=== PATIENT | female | born 1955 | race Caucasian/White ===

== ENCOUNTER → 2018-06-19 11:58 | Outpatient (REF) | payer MEDICAID, SELFPAY ==
[2018-06-19 12:50] LABS: Anion Gap 12.4 mmol/L (3-11); BUN 13 mg/dL (7-18); CO2 22.6 mmol/L (21.0-32.0); CREATININE 0.77 mg/dL (0.55-1.02); Calcium 8.8 mg/dL (8.5-10.1); Chloride 103 mmol/L (98-107); Glucose 115 mg/dL (70-100); NT-proBNP 69 pg/mL; Potassium 4.6 mmol/L (3.5-5.1); Sodium 138 mmol/L (136-145)
== END ==
LOC: LBN 11:58
PROVIDERS: PCP Family Medicine; Visit Provider Family Medicine
DX: I10 Essential (primary) hypertension (principal)
CPT/HCPCS: 80048; 83880

== ENCOUNTER → 2018-06-26 13:57 | Outpatient (CLI) | payer MEDICAID, SELFPAY ==
--- NOTE | 2018-06-26 13:44 | DI.REPORT_ITS ---
SYMPTOM/DIAGNOSIS: F/U RT PROX HUMERUS FX RIGHT SHOULDER: When compared with the previous images of 06/14/18 there has been no appreciable interval change in apposition or alignment of the comminuted fracture of the proximal radius. Early callus formation is identified at the fracture margins and there is nothing to suggest that healing is not progressing satisfactorily at the present time.
--- NOTE | 2018-06-26 13:44 | DI.REPORT_ITS ---
SYMPTOM/DIAGNOSIS: R/U ORIF RT ANKLE FX RIGHT ANKLE: Three projections are provided. The patient is status post plate and screw fixation of a lateral malleolar fracture and screw fixation of a medial malleolar fracture. There has been no apparent change in the position of the trimalleolar fracture. Orthopaedic hardware in place.
== END ==
PROVIDERS: PCP Family Medicine; Visit Provider Student in an Organized Health Care Education/Training Program
DX: S82.891F Other fracture of right lower leg, subsequent encounter for open fracture type IIIA, IIIB, or IIIC with routine healing (principal); S42.291D Other displaced fracture of upper end of right humerus, subsequent encounter for fracture with routine healing
CPT/HCPCS: 73030; 73610

== ENCOUNTER → 2018-07-17 11:16 | Outpatient (CLI) | payer MEDICAID, SELFPAY ==
--- NOTE | 2018-07-17 11:12 | DI.REPORT_ITS ---
SYMPTOMS/DIAGNOSIS: OPEN FX RT ANKLE RIGHT ANKLE: Three projections were provided. There has been no change in the apposition of the fractures of the medial and lateral malleolus or status of the orthopedic hardware.
--- NOTE | 2018-07-17 11:12 | DI.REPORT_ITS ---
SYMPTOMS/DIAGNOSIS: FX RT HUMERUS RIGHT SHOULDER: There has been no interval change in the apposition or alignment of the fracture of the proximal humerus. There is nothing to suggest that healing is not progressing satisfactorily at the present time.
== END ==
PROVIDERS: PCP Family Medicine; Visit Provider Physician Assistant
DX: S42.294D Other nondisplaced fracture of upper end of right humerus, subsequent encounter for fracture with routine healing (principal); S82.891E Other fracture of right lower leg, subsequent encounter for open fracture type I or II with routine healing
CPT/HCPCS: 73030; 73610

== ENCOUNTER 2018-08-14 14:25 | Outpatient (CLI) | payer MEDICAID, SELFPAY ==
--- NOTE | 2018-08-14 14:18 | DI.RAD_ITS ---
SYMPTOM/DIAGNOSIS: S/P ORIF RT ANKLE RIGHT ANKLE: When compared with the prior study of 07/17/18 there has been no interval change in apposition of the fracture of the medial and lateral malleoli or status of the orthopaedic hardware.
--- NOTE | 2018-08-14 14:18 | DI.RAD_ITS ---
SYMPTOM/DIAGNOSIS: PROXIMAL HUMERUS FX RIGHT SHOULDER: When compared with the prior examination of 07/17/18 there has been no apparent interval change in the appositional alignment of the fractures involving the proximal humerus.
== END 2018-08-14 14:45 ==
PROVIDERS: PCP Family Medicine; Visit Provider Student in an Organized Health Care Education/Training Program
DX: S82.51XD Displaced fracture of medial malleolus of right tibia, subsequent encounter for closed fracture with routine healing (principal); S42.294D Other nondisplaced fracture of upper end of right humerus, subsequent encounter for fracture with routine healing
CPT/HCPCS: 73030; 73600

== ENCOUNTER 2018-09-11 13:53 | Outpatient (CLI) | payer MEDICAID, SELFPAY ==
--- NOTE | 2018-09-11 13:16 | DI.RAD_ITS ---
SYMPTOMS/DIAGNOSIS: F/U RIGHT ANKLE OPEN REDUCTION AND INTERNAL FIXATION RIGHT ANKLE: Comparison is made with July,. There has been no change in the hardware in the distal tibia and fibula. There has been continued healing of the fractures. 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
== END 2018-09-11 14:13 ==
PROVIDERS: PCP Family Medicine; Visit Provider Student in an Organized Health Care Education/Training Program
DX: S82.51XD Displaced fracture of medial malleolus of right tibia, subsequent encounter for closed fracture with routine healing (principal); M81.8 Other osteoporosis without current pathological fracture
CPT/HCPCS: 73610

== ENCOUNTER 2019-01-23 16:22 | Outpatient (REF) | payer MEDICAID, SELFPAY ==
--- NOTE | 2019-01-23 10:30 | PAPFT_PTH ---
PATIENT: Elle Neal LOC: [facility] U#:[id number] AGE/SX: 63/F ROOM: RE01/23/[address]: Riya Shea V : 1955 BED: DIS: 01/23/2019 SPEC #: [id number] RECD: 01/24/19 13:11 STATUS: RACHID REAnahi #: [id number] TOO: 01/23/19 10:[address]: Riya Shea V DEPT: [facility] Cytology RECD BY: Poornima Garrett Tissues: 1 - CX/ENDOCX FOR PAP SMEARS Procedures: PAP THIN PREP/UVM Screening HPV DNA PROBE Comments: [id number]
== END 2019-01-23 16:42 ==
LOC: NCHCN 16:22
PROVIDERS: PCP Family Medicine; Visit Provider Family Medicine
DX: Z12.4 Encounter for screening for malignant neoplasm of cervix (principal); Z11.51 Encounter for screening for human papillomavirus (HPV); Z01.419 Encounter for gynecological examination (general) (routine) without abnormal findings
CPT/HCPCS: 88142; 87624

== ENCOUNTER 2019-09-15 17:43 | Outpatient (REF) | payer MEDICAID, SELFPAY | END 2019-09-15 18:03 | LOC: NCHCN 17:43 | PROVIDERS: PCP Family Medicine; Visit Provider Nurse Practitioner Family | DX: J02.9 Acute pharyngitis, unspecified (principal); K21.9 Gastro-esophageal reflux disease without esophagitis | CPT/HCPCS: 87070 ==

== ENCOUNTER 2020-04-22 01:06 | Outpatient (CLI) | payer MEDICAID, SELFPAY ==
--- NOTE | 2020-04-22 15:12 | DI.MAMMO_ITS ---
EXAM: MG MAMMO SCREENING CLINICAL HISTORY: [facility], Z00.00, SCREENING, Z12.31 TECHNIQUE: Mammograms were interpreted according to the usual protocol including computer analysis w [employer] CAD system, tomosynthesis and C-view imaging. COMPARISON: FINDINGS: The breasts are of moderate density with fairly symmetrical distribution of fibroglandular tissue. N o dominant mass or clumped microcalcification is identified in either breast. A focal area of asymme tric density of the upper outer quadrant of the left breast is unchanged comparison with multiple pre vious examinations including February 2016. No other significant change seen. IMPRESSION: No specific evidence of malignancy at this time. Routine screening examinations are suggested yearly intervals in this age group according to the ACS ACR guidelines. BI-RADS Cat 1 - Negative: Breast Density - Category B - Scattered areas of fibroglandular density:
== END 2020-04-22 01:26 ==
PROVIDERS: PCP Family Medicine; Visit Provider Family Medicine
DX: Z12.31 Encounter for screening mammogram for malignant neoplasm of breast (principal)
CPT/HCPCS: 77063; 77067

== ENCOUNTER 2020-08-02 11:10 | Outpatient (CLI) | payer MEDICAID, SELFPAY ==
--- NOTE | 2020-08-02 10:30 | DI.RAD_ITS ---
EXAM: XR ANKLE RT COMPLETE CLINICAL HISTORY: rt ankle pain TECHNIQUE: COMPARISON: No exams were available for comparison FINDINGS: Three views were obtained. Examination compared to previous films of August 2018. Note is again ma de plate and screw fixation previous tibiofibular fracture. In comparison with the previous examinat ion, there is decrease in the cartilaginous joint space of the tibiotalar joint, presumably on a dege nerative basis. No other significant change seen. Subtalar joints appear fairly maintained as visua lized. IMPRESSION: RADIATION DOSE DELIVERED: Total DLP
== END 2020-08-02 11:30 ==
PROVIDERS: PCP Family Medicine; Referring Provider Family Medicine; Visit Provider Student in an Organized Health Care Education/Training Program
DX: M25.571 Pain in right ankle and joints of right foot (principal)
CPT/HCPCS: 73610

== ENCOUNTER 2021-01-25 01:30 | Outpatient (CLI) | payer MEDICAID, SELFPAY ==
--- NOTE | 2021-01-25 | DI.MAMMO_ITS ---
EXAM: MG MAMMO DIAGNOSTIC and U/S breast RT CLINICAL HISTORY: RT BREAST PAIN, N64.4,DIAGNOSTIC. TECHNIQUE: Craniocaudal and mediolateral oblique Full Field Digital Mammography views with Computer Aided Diagnosis followed by Tomosynthesis and right breast ultrasound. COMPARISON: Priors available for comparison. FINDINGS: Mammography/Tomosynthesis: Masses/Architectural Distortion: None seen. Stable focal asymmetry in the upper outer quadrant of the left breast. Microcalcifictions: No suspicious pleomorphic-type are seen. Skin Thickening/Nipple Retraction: None. Right breast US: Targeted right breast ultrasound was performed in the area of palpable concern. Echotexture: Normal appearance of the glandular tissue. Shadowing: No suspicious foci. Cyst: None. Solid lesions: Sonographically benign axillary lymph nodes are seen. No suspicious solid lesions are seen sonographically. Ductal dilation: None. IMPRESSION: 1. No evidence of malignancy is noted. 2. Unless there is more urgent need, follow-up screening mammography is recommended, as per [employer] guidelines. 3. The findings were discussed with the patient on the date of the examination. BI-RADS Category 1 - Negative Breast Density - Category B - Scattered areas of fibroglandular density Breast density Category C or D implies that the patient has dense breast tissue. Dense breast tissue can make it harder to find cancer on a mammogram. Dense breast tissue is also associated with an incr eased risk of breast cancer. This information about the result of the mammogram report was provided to the patient to raise their awareness. Use this report when you speak with the patient about their risks for breast cancer, which includes their family history. At that time, you may recommend additional screening tests (Ultrasoun d or MRI) as these tests may add significant information. A negative radiographic report should not delay biopsy if a dominant or clinically suspicious mass is present. Up to ten percent of cancers are not identified on mammography. A negative report may reinforce clinical impression. Adenosis and dense breasts may obscure an underlying neoplasm. False positive reports average 6 to 10%. Patient will receive a letter notifying them of these results.
== END 2021-01-25 01:50 ==
PROVIDERS: PCP Family Medicine; Visit Provider Nurse Practitioner Family
DX: N64.4 Mastodynia (principal)
CPT/HCPCS: 76642; 77061; 77065; G0279

== ENCOUNTER 2021-05-03 11:34 | Outpatient (REF) | payer MEDICAID, SELFPAY ==
[2021-05-03 19:36] LABS: HCT 38.7 % (36.0-46.0); HGB 12.4 g/dL (11.2-15.7)
[2021-05-03 19:56] LABS: ALT 20 U/L (14-59); AST 12 U/L (15-37); Albumin 3.6 g/dL (3.4-5.0); Alkaline Phosphatase 120 U/L (46-116); Anion Gap 10.8 mmol/L (3-11); BUN 13 mg/dL (7-18); Bilirubin, Total 0.5 mg/dL (0.2-1.0); CO2 27.2 mmol/L (21.0-32.0); CREATININE 0.8 mg/dL (0.55-1.02); Calcium 8.3 mg/dL (8.5-10.1); Calculated LDL 133 mg/dL (<100); Chloride 103 mmol/L (98-107); Cholesterol 185 mg/dL (<200); Glucose 95 mg/dL (74-106); HDL Cholesterol 39 mg/dL (40-60); Potassium 3.5 mmol/L (3.5-5.1); Sodium 141 mmol/L (136-145); TSH (W/Ref FT4) 1.96 uIU/mL (0.36-3.74); Total Protein 6.7 g/dL (6.4-8.2); Triglyceride 68 mg/dL (<150)
[2021-05-03 20:42] LABS: Hemoglobin A1C 5.2 % (<5.7)
== END 2021-05-03 11:35 | disposition home or self-care (01) ==
LOC: NCHCN 11:34
PROVIDERS: PCP Family Medicine; Visit Provider Family Medicine
DX: G25.2 Other specified forms of tremor (principal); K76.0 Fatty (change of) liver, not elsewhere classified; E66.9 Obesity, unspecified; R79.89 Other specified abnormal findings of blood chemistry; Z00.00 Encounter for general adult medical examination without abnormal findings
CPT/HCPCS: 80053; 80061; 83036; 84443; 85014; 85018

== ENCOUNTER 2021-08-09 23:09 | Outpatient (CLI) | payer MEDICAID, SELFPAY ==
--- NOTE | 2021-08-09 12:47 | DI.RAD_ITS ---
Exam(s) XR KNEE RT 3V AP,LAT,ROB EXAM: XR KNEE RT 3V AP,LAT,ROB CLINICAL HISTORY: KNEE PAIN M25.569. TECHNIQUE: 2D digital imaging was performed of the right knee. Four views obtained. AP, lateral and PA views were obtained. COMPARISON: CR ABD FLAT UPRIGHT PA CHEST from 05/14/2009 FINDINGS: BONES: No acute fracture is present. No bony destructive lesion is seen. There is a small enthesophyt e at the superior patella. JOINTS: The knee is normally aligned. No joint effusion is seen. There is narrowing in the medial fem oral tibial joint space. Periarticular spurring is seen involving all 3 joint compartments. SOFT TISSUE: Normal. IMPRESSION: Mild to moderate degenerative changes of the right knee. DATA REPOSITORY: RADIATION DOSE DELIVERED:
--- NOTE | 2021-08-09 12:47 | DI.RAD_ITS ---
Exam(s) XR KNEE LT 3V AP,LAT,ROB EXAM: XR KNEE LT 3V AP,LAT,ROB CLINICAL HISTORY: KNEE PAIN M25.569. TECHNIQUE: 2D digital imaging was performed of the left knee. Four images were obtained. AP, later al, and PA tunnel views were obtained. COMPARISON: No previous for comparison. FINDINGS: BONES: No acute fracture is present. No bony destructive lesion is seen. JOINTS: The knee is normally aligned. No joint effusion is seen. Mild narrowing and periarticular spu rring is seen in the lateral femoral tibial joint space. SOFT TISSUE: Normal. IMPRESSION: Mild degenerative changes of the left knee. DATA REPOSITORY: RADIATION DOSE DELIVERED:
== END 2021-08-09 23:29 ==
PROVIDERS: PCP Family Medicine; Visit Provider Family Medicine
DX: M25.561 Pain in right knee (principal); M25.562 Pain in left knee; M17.0 Bilateral primary osteoarthritis of knee
CPT/HCPCS: 73562

== ENCOUNTER 2021-09-12 10:35 | Outpatient (CLI) | payer MEDICAID, SELFPAY ==
--- NOTE | 2021-09-12 10:30 | DI.RAD_ITS ---
Exam(s) XR KNEE LT 1V EXAM: XR KNEE LT 1V CLINICAL HISTORY: eval anteiror Left knee pain. TECHNIQUE: 2D digital imaging was performed. COMPARISON: CR XR KNEE LT 3V AP,LAT,ROB from 08/09/2021 FINDINGS: Single merchant's view of the left knee reveals normal appearing patellofemoral compartment on this s judy view. No joint space narrowing. No osteochondral defects. No osteophytes. No fracture. No patellar displacement. IMPRESSION: DATA REPOSITORY: RADIATION DOSE DELIVERED:
== END 2021-09-12 10:36 | disposition home or self-care (01) ==
LOC: DIORS 10:35
PROVIDERS: PCP Family Medicine; Referring Provider Family Medicine; Visit Provider Student in an Organized Health Care Education/Training Program
DX: M25.562 Pain in left knee (principal)
CPT/HCPCS: 73560

== ENCOUNTER 2021-10-21 12:02 | Outpatient (CLI) | payer MEDICAID, SELFPAY ==
--- NOTE | 2021-10-21 13:50 | DI.RAD_ITS ---
Exam(s) XR SCAPULA RT EXAM: XR SCAPULA RT CLINICAL HISTORY: MULTIPLE SKIN LESIONS L98.8. TECHNIQUE: 2D digital imaging was performed. Two views were obtained. COMPARISON: CR XR shoulder RT complete 2+V from 08/14/2018 FINDINGS: BONES: No acute fracture is present. Findings of an old healed proximal right humeral fracture are n oted. No bony destructive lesion is seen. JOINTS: No dislocation present. There are degenerative changes of the acromioclavicular joint. SOFT TISSUE: Normal. IMPRESSION: No acute abnormality. DATA REPOSITORY: RADIATION DOSE DELIVERED:
== END 2021-10-21 12:22 ==
PROVIDERS: PCP Family Medicine; Visit Provider Family Medicine
DX: L98.8 Other specified disorders of the skin and subcutaneous tissue (principal)
CPT/HCPCS: 73010

== ENCOUNTER 2022-03-28 01:38 | Outpatient (CLI) | payer MEDICAID, SELFPAY ==
[2022-03-28 11:30] LABS: HCT 41.4 % (36.0-46.0); HGB 13.5 g/dL (11.2-15.7); MCHC 32.6 % (32.0-36.0); MCV 92 fL (80-95); Platelet Count 219 10^3/uL (130-400); RDW 12.1 % (11.7-14.6); RDW-SD 40.9 fL; WBC 5.31 10^3/uL (4.4-10.8)
[2022-03-28 12:42] LABS: ALT 17 U/L (14-59); AST 12 U/L (15-37); Albumin 3.5 g/dL (3.4-5.0); Alkaline Phosphatase 124 U/L (46-116); Anion Gap 8.1 mmol/L (3-11); BUN 13 mg/dL (7-18); Bilirubin, Total 0.5 mg/dL (0.2-1.0); CO2 27.9 mmol/L (21.0-32.0); CREATININE 0.8 mg/dL (0.55-1.02); Calcium 8.1 mg/dL (8.5-10.1); Chloride 100 mmol/L (98-107); Glucose 101 mg/dL (74-106); Potassium 3.8 mmol/L (3.5-5.1); Sodium 136 mmol/L (136-145); Total Protein 6.5 g/dL (6.4-8.2)
== END 2022-03-28 01:39 | disposition home or self-care (01) ==
LOC: LBO 01:38
PROVIDERS: PCP Family Medicine; Visit Provider Family Medicine
DX: R10.11 Right upper quadrant pain (principal); K13.70 Unspecified lesions of oral mucosa; K76.0 Fatty (change of) liver, not elsewhere classified; Z86.2 Personal history of diseases of the blood and blood-forming organs and certain disorders involving the immune mechanism
CPT/HCPCS: 36415; 80053; 85027

== ENCOUNTER → 2022-05-03 01:23 | Outpatient (CLI) | payer MEDICAID, SELFPAY ==
--- NOTE | 2022-05-03 11:00 | DI.US_ITS ---
Exam(s) US ABDOMEN EXAM: US ABDOMEN CLINICAL HISTORY: RUQ PAIN, R10.11 TECHNIQUE: Ultrasound of complete upper abdomen performed using standard protocol. COMPARISON: US US BREAST RT LIMITED from 01/25/2021 FINDINGS: There is no ascites evident. LIVER: There are no hepatic lesions evident nor obvious dilatation of intrahepatic ducts. GALLBLADDER/BILIARY: There are 2 tiny hyperechoic gallstones noted. The common hepatic duct isnot dilated, measuring 3-4mm at the level of colten hepatis. PANCREAS: There is no evidence of pancreatic mass nor dilatation of the pancreatic duct. SPLEEN: The spleen is not enlarged and there are no intrasplenic lesions evident. KIDNEYS:Kidneys exhibit normal size with no evidence of solid mass, calculus, nor hydronephrosis. No cortical cysts evident. ABDOMINAL AORTA: There is no evidence of abdominal aortic aneurysm. IVC: Normal diameter where visualized. IMPRESSION: 1. There are 2 tiny gallstones noted. No gallbladder wall edema nor pericholecystic fluid nor dilat ation of the common hepatic duct. 2. No other significant ultrasound findings in the upper abdomen. 3. There is no ascites. DATA REPOSITORY:
== END ==
PROVIDERS: PCP Family Medicine; Visit Provider Family Medicine
DX: K80.20 Calculus of gallbladder without cholecystitis without obstruction
CPT/HCPCS: 76700

== ENCOUNTER 2022-05-03 02:21 | Outpatient (CLI) | payer MEDICAID, SELFPAY | END 2022-05-03 02:22 | disposition home or self-care (01) | LOC: LBO 02:21 | PROVIDERS: PCP Family Medicine; Visit Provider Family Medicine ==

== ENCOUNTER 2022-12-04 10:12 | Outpatient (REF) | payer MEDICAID, SELFPAY ==
[2022-12-04 16:40] LABS: TSH (W/Ref FT4) 2.09 uIU/mL (0.36-3.74)
[2022-12-04 17:56] LABS: Vitamin D 25 Total 16.9 ng/mL (30-100)
== END 2022-12-04 10:13 | disposition home or self-care (01) ==
LOC: NCHCN 10:12
PROVIDERS: PCP Family Medicine; Visit Provider Family Medicine
DX: L65.9 Nonscarring hair loss, unspecified (principal)
CPT/HCPCS: 82306; 84443

== ENCOUNTER 2023-02-05 13:07 | Outpatient (REF) | payer MEDICARE, MEDICAID, SELFPAY ==
[2023-02-05 15:43] LABS: HCT 40.8 % (36.0-46.0); HGB 13.2 g/dL (11.2-15.7); MCH 29.3 pg (27.0-33.0); MCHC 32.4 % (32.0-36.0); MCV 91 fL (80-95); MPV 11.3 fL (8.0-11.0); Platelet Count 222 10^3/uL (130-400); RBC 4.51 10^6/uL (3.93-5.22); RDW 11.9 % (11.7-14.6); RDW-SD 39.1 fL
[2023-02-05 16:43] LABS: ALT 18 U/L (14-59); AST 13 U/L (15-37); Albumin 3.7 g/dL (3.4-5.0); Alkaline Phosphatase 121 U/L (46-116); Anion Gap 9.1 mmol/L (3-11); BUN 15 mg/dL (7-18); Bilirubin, Total 0.2 mg/dL (0.2-1.0); CO2 26.9 mmol/L (21.0-32.0); CREATININE 0.9 mg/dL (0.55-1.02); Calcium 8.9 mg/dL (8.5-10.1); Chloride 105 mmol/L (98-107); Estimated GFR 70.95 (mL/min/1.73m2); Glucose 108 mg/dL (74-106); Lipase 31 U/L (16-77); Potassium 3.9 mmol/L (3.5-5.1); Sodium 141 mmol/L (136-145); Total Protein 7.2 g/dL (6.4-8.2)
== END 2023-02-05 13:08 | disposition home or self-care (01) ==
LOC: NCHCN 13:07
PROVIDERS: PCP Family Medicine; Visit Provider Family Medicine
DX: R10.9 Unspecified abdominal pain (principal)
CPT/HCPCS: 80053; 83690; 85027

== ENCOUNTER → 2024-04-23 01:49 | Outpatient (CLI) | payer OTHER, MEDICAID, SELFPAY ==
--- NOTE | 2024-04-23 | DI.MAMMO_ITS ---
Exam(s) MG MAMMO SCREENING 60 MIN DUR EXAM: MG MAMMO SCREENING 60 MIN DUR CLINICAL HISTORY: SCREENING, Z12.39 TECHNIQUE: Bilateral full field digital CC and MLO mammographic images were obtained with 3D tomosyn thesis and utilizing computer aided detection (CAD). COMPARISON: Available for comparison. FINDINGS: Masses/Architectural Distortion: The asymmetric breast tissue in the upper outer quadrant of the left breast appears stable. No suspicious or new masses are seen. No areas of architectural distortion are present. Microcalcifications: No suspicious pleomorphic-type are seen. Skin Thickening/Nipple Retraction: None. IMPRESSION: 1. No significant interval change with no specific features of malignancy noted. 2. Unless there is more urgent need, screening mammography is recommended, as per [place] [employer] guidelines. BI-RADS Category 2 - Benign Findings Breast Density - Category B - Scattered areas of fibroglandular density Breast density category C or D implies that the patient has dense breast tissue. Dense breast tissue is very common and is not abnormal but dense breast tissue can make it harder to find cancer on a ma mmogram. Also, dense breast tissue may increase their breast cancer risk. This information about the result of the mammogram report was provided to the patient to raise their awareness. Use this report when you speak with the patient about their risks for breast cancer, which includes their family hist ory. At that time, you may recommend for more screening tests (Ultrasound or MRI) as they might be us eful based on their risk. A negative radiographic report should not delay biopsy if a dominant or clinically suspicious mass is present. Up to ten percent of cancers are not identified on mammography. A negative report may reinforce clinical impression. Adenosis and dense breasts may obscure an underlying neoplasm. False positive reports average 6 to 10%. Patient will receive a letter notifying them of these results.
== END ==
PROVIDERS: PCP Family Medicine; Visit Provider Family Medicine
DX: Z12.31 Encounter for screening mammogram for malignant neoplasm of breast (principal)
CPT/HCPCS: 77063; 77067

== ENCOUNTER → 2024-05-06 10:00 | Outpatient (BNVA) | payer OTHER, MEDICAID, SELFPAY | PROVIDERS: PCP Family Medicine; Referring Provider Family Medicine; Visit Provider Nurse Practitioner Adult Health | DX: G31.84 Mild cognitive impairment of uncertain or unknown etiology (principal) | CPT/HCPCS: 99215; G2212 ==

== ENCOUNTER 2024-05-06 16:07 | Outpatient (CLI) | payer OTHER, SELFPAY ==
[2024-05-06 13:21] LABS: Vitamin B12 229 pg/mL (193-986)
== END 2024-05-06 16:08 | disposition home or self-care (01) ==
LOC: LBO 16:10
PROVIDERS: PCP Family Medicine; Visit Provider Nurse Practitioner Adult Health
DX: G31.84 Mild cognitive impairment of uncertain or unknown etiology (principal)
CPT/HCPCS: 36415; 82607

== ENCOUNTER → 2024-06-26 09:47 | Outpatient (BNVA) | payer OTHER, SELFPAY | PROVIDERS: PCP Family Medicine; Referring Provider Family Medicine; Visit Provider Nurse Practitioner Adult Health | DX: R41.89 Other symptoms and signs involving cognitive functions and awareness (principal) | CPT/HCPCS: 99214 ==

== ENCOUNTER 2024-07-15 01:27 | Outpatient (CLI) | payer OTHER, SELFPAY ==
--- NOTE | 2024-07-15 07:15 | DI.MRI_ITS ---
Exam(s) MR BRAIN WO EXAM: MR BRAIN WO CLINICAL HISTORY: ? stroke, mass,cognitive impairment,r41.89 TECHNIQUE: Multiplanar multisequence MRI of the brain was performed. COMPARISON: No exams were available for comparison FINDINGS: CEREBRAL PARENCHYMA: There is no evidence of intracranial hemorrhage, mass effect, or shift of midline structures. There are no extra-axial fluid collections. Ventricles are not enlarged or shifted. Mild symmetrical atro phy. There is no significant focal signal abnormality in the cerebellar hemispheres nor within the toyin, m idbrain, and thalami. There is no abnormal signal abnormality in the periventricular white matter. There is no significant focal signal abnormality evident on diffusion imaging to suggest acute ischem ic event. PITUITARY GLAND: No mass nor parasellar abnormality. No obvious abnormality in the cavernous sinuses. FLOW VOIDS: The expected flow void are noted. No evidence of obvious aneurysm nor obvious vascular ma lformation. PARANASAL SINUSES: Some mucosal thickening is noted in the floor of the right maxillary sinus. No as sociated fluid level. Other paranasal sinuses are clear. ORBITS: No obvious findings. IMPRESSION: No significant acute intracranial findings on this noninfused MRI scan of the brain. Mild symmetrica l atrophy. No ventriculomegaly. No evidence of recent nor remote infarct Incidentally noted is mild mucosal thickening in the floor of the right maxillary sinus. DATA REPOSITORY:
== END 2024-07-15 01:47 ==
LOC: DI 01:27
PROVIDERS: PCP Family Medicine; Visit Provider Nurse Practitioner Adult Health
DX: R41.89 Other symptoms and signs involving cognitive functions and awareness (principal)
CPT/HCPCS: 70551

== ENCOUNTER → 2024-08-07 08:14 | Outpatient (BNVA) | payer OTHER, SELFPAY | PROVIDERS: PCP Family Medicine; Referring Provider Family Medicine; Visit Provider Nurse Practitioner Adult Health | DX: F03.90 Unspecified dementia, unspecified severity, without behavioral disturbance, psychotic disturbance, mood disturbance, and anxiety (principal) | CPT/HCPCS: 99214 ==

== ENCOUNTER → 2024-08-21 09:17 | Outpatient (BNVA) | payer OTHER, SELFPAY | PROVIDERS: PCP Family Medicine; Referring Provider Family Medicine; Visit Provider Surgery | DX: Z12.11 Encounter for screening for malignant neoplasm of colon (principal); Z90.49 Acquired absence of other specified parts of digestive tract ==

== ENCOUNTER 2024-09-19 07:51 | Day surgery (SDC) | payer OTHER, SELFPAY ==
[2024-09-19 08:10] VITALS: BP 122/88; PULSE 72; RESP 16; TEMP 36.3; O2SAT 98
--- NOTE | 2024-09-19 08:44 | PDOC.DSDIS_ITS ---
Date of service: 09/19/24 Time of Service: 10:28 Discharge Plan Disposition Patient Disposition: Home Condition: Good Discharge Details Reason For Visit: crc screening Attending Provider: Negra Taylor Primary Care Provider: Riya Shea V Home Meds and New Rx's Prescriptions: Continued donepezil 5 mg tablet 5 mg PO QHS Qty: 30 2RF Discontinued bisacodyl [Dulcolax (bisacodyl)] 5 mg tablet,delayed release (DR/EC) 5 mg PO ONCE Qty: 4 0RF Rx Instructions: take per colonoscopy instructions No Action polyethylene glycol 3350 17 gram/dose powder 238 g PO ONCE Qty: 238 0RF Rx Instructions: take per colonoscopy instructions trazodone 50 mg tablet 50 mg PO QHS PRN Discharge Instructions Additional Instructions: DSU Colonoscopy Post- Op Instructions Instructions for Everyone who is given Anesthesia: For your safety, please do the following for the next twenty-four (24) hours: *Do Not operate a motor vehicle (car, truck, motorcycle, etc.) *Do Not drink alcoholic beverages or use any recreational drugs for the first 24 hours or while taking pain medications. The medications in your body may have a reaction that can be dangerous. *Do Not make any important decisions or sign any important papers. Findings: Small colon polyp Follow up: My office will send you a letter in approximately 3 weeks time with the results of the pathology and when we want you to repeat the colonoscopy. 1. No lifting over 20 pounds or strenuous activity for the first 24 hours after your procedure. After 24 hours there are no restrictions on your activity but you may feel fatigued for a few days. 2. After you arrive home you may have a light meal and return to your normal diet as you can tolerate it without feeling sick to your stomach. 3. You may have a bloated, gaseous feeling in your belly (abdomen) after a colonoscopy. Passing gas and belching will help. Walking or lying down on your left side with your knees flexed may relieve the discomfort. Call the office at [phone] (Office) or [phone] (Hospital) right away if you notice any of the following: a.Vomiting of blood or ?coffee ground stools?. b.Rectal bleeding 1Tbsp, blood clots or continuous bleeding. c.Severe belly (abdominal) pain. d.A hard distended belly (abdomen) and an inability to pass gas. 4. Please don?t expect to have a normal BM (bowel movement) for 2-3 days after your procedure. 5. If there are questions regarding the findings of your procedure, please contact your doctor 6. If you are unable to contact your doctor with a problem, contact the hospital at [phone]. 7. Continue all your regular medications unless directed otherwise. I understand the above instructions and have no questions. Signature of Patient or Adult Escort Name of Responsible Adult Escort Signature of Nurse Date/Time Stand Alone Forms: Anesthesia Discharge Inst., Colonoscopy Post Instructions, David Kay (DSU) Activity:: see above Diet:: See above Discharge Orders Discharge Orders: Discharge Order (Routine); Ordered 09/19/24 Ordered By: Negra Taylor DS: Diagnosis Discharge Diagnosis (1) Screening for malignant neoplasm of colon performed: Status: Acute Asessment and Plan: The patient is seen and examined after their colonoscopy.? The patient has been able to pass gas.? They are not having abdominal pain.? They have been able to tolerate liquids and a snack.? They do not have any nausea or vomiting.? They ar e not having any chest pain or shortness of breath.??? They are not having any rectal bleeding. Their vital signs have been stable-see nursing notes. We discussed findings during their colonoscopy, and any biopsies that were done/polyps that were removed. The patient will be sent a letter with any biopsy results, and when to repeat the colonoscopy.-see discharge instructions. Patient was given explicit instructions to follow-up regarding colonoscopy-refer to discharge instructions.? We reviewed resumption of medications. Patient verbalized understanding and discharged in stable and satisfactory condition- See nursing notes. (2) Colon polyp: Status: Acute
--- NOTE | 2024-09-19 08:44 | W.COLOREPORT ---
Date of service: 09/19/24 Time of Service: 10:23 Colonoscopy Report Date of procedure: 09/19/24 Pre-op diagnosis general: CRC screening Post-op diagnosis procedure note: other (Colon polyp x 1 and internal hemorrhoids) Surgeon: Negra Taylor Anesthesia Type: General:No Airway Estimated blood loss (mL): 1 Pathology: other Complications: None Disposition: same day Prep: Miralax/Dulcolax Retraction Time: 11 Procedure Description: After informed consent was obtained, explaining risks of the procedure, including but not limits to: bleeding, infections, complications of anesthesia, perforations (which may require antibiotics and /or surgery and stay in the hospital), and abdominal pain/cramping. The patient was taken to the procedure room and placed in a left decubitous position. Monitors were applied and a time out was done. The patients name, date of , procedure, allergies to medications and metal in their body was reviewed. The patient was then sedated. Once sedated and comfortable a rectal exam was done. External exam was normal. Internal exam revealed a normal sphincter tone and no palpable masses. The previously lubricated Olympus scope was then introduced (see RN notes for scope number) and retrofelexed. Grade 2 internal hemorrhoids x 1 column is were identified. The scope was then advanced to the cecum without difficulty. The TI and appendiceal orifice were identified. The scope was then slowly retracted over 11 minutes back into the rectum. Polyps: A flat, .75cm polyp was found at 60cm. This was removed with a cold biting forceps. All of the specimen was retrieved. This will be sent to pathology. There is no bleeding noted from the polypectomy site. Diverticula: None. The mucosa is pink and healthy w/ a normal vascular pattern. The scope was removed, and the patient was woken up and taken back to Same day surgery in stable condition. The patient tolerated the procedure well and there were no immediate complications. Follow up: The patient should follow up in 7?10 years, path pending, unless they develop changes in bowel habits or other new gastrointestinal complaints. [place] Bowel Prep [place] Bowel Prep Right Colon: 3 Left Colon: 3 Transverse Colon: 3 Total Score: 9
[2024-09-19] MEDS: Normal Saline Flush 10 ML SYR IV (08:57)
--- NOTE | 2024-09-19 09:47 | W.ANESPRE ---
General Info Date of Service Date Performed: 09/19/24 Height: 5 ft 1 in Weight: 83.8 kg Body Mass Index (BMI): 34.9 Surgical Procedure: Operation Date: 09/19/24 09:35 Proposed Procedure Side Surgeon nikki Taylor, Meds Allergies and Home Medications Allergies Allergy/AdvReac Type Severity Reaction Status Date / Time dicyclomine (From Bentyl) Allergy Severe Other (See Verified 09/19/24 08:27 Comment) venlafaxine (From Effexor) Allergy Severe Other (See Verified 09/19/24 08:27 Comment) dexlansoprazole (From Allergy Intermediate Other (See Verified 09/19/24 08:27 Dexilant) Comment) duloxetine (From Cymbalta) Allergy Intermediate Other (See Verified 09/19/24 08:27 Comment) Latex, Natural Rubber Allergy Skin Rash Verified 09/19/24 08:27 Home Medication ?Medication ?Instructions ?Recorded donepezil 5 mg tablet 5 mg PO QHS #30 tabs 08/07/24 polyethylene glycol 3350 17 238 g PO ONCE colonoscopy prep 08/21/24 gram/dose oral powder #238 grams trazodone 50 mg tablet 50 mg PO QHS PRN 08/21/24 Current Visit Medications: Current Medications Generic Name Dose Route Start Last Admin Trade Name Freq PRN Reason Stop Dose Admin Hyoscyamine Sulfate 0.125 mg 09/19/24 13:24 Hyoscyamine 0.125 Mg Sl/Oral/Chew SL 10/19/24 13:23 DIRECTED PRN Ringer's Solution 500 mls @ 80 mls/hr 09/19/24 06:00 IV 10/18/24 23:59 INFUSION BRENTON IV Miscellaneous Supplies 1 each 09/19/24 06:00 Iv Access IV 10/18/24 23:59 DIRECTED BRENTON Ondansetron HCl 4 mg 09/19/24 01:24 Ondansetron 4 Mg/2 Ml Vial IVP 10/19/24 01:23 Q4H PRN PRN Nausea / Vomiting Sodium Chloride 0 ml 09/19/24 06:00 09/19/24 08:57 Normal Saline Flush 10 Ml Syr IV 10/18/24 23:59 10 ml PRN PRN Administration Sodium Chloride 0 ml 09/19/24 06:00 Normal Saline 10 Ml Vial IJ 10/18/24 23:59 DIRECTED PRN Sterile Water 0 ml 09/19/24 06:00 Water,Injection,Sterile 10 Ml Vial IJ 10/18/24 23:59 DIRECTED PRN PFSH Active Problems Active Problems: Problem Status Onset Code Screening for malignant neoplasm of colon performed Acute Z12.11 Recurrent major depression Acute F33.9 Dementia Chronic F03.90 Cognitive impairment Acute R41.89 Mild cognitive impairment Acute G31.84 Phlegm in throat Acute R09.89 Obesity Chronic E66.9 Borderline personality disorder Acute F60.3 Medical History Medical History (Updated 09/19/24 @ 08:44 by Negra Taylor DO) Tietze disease Meckels diverticulum History of IBS Genetic susceptibility to other disease Tremor Arm pain, right Hair loss Vitamin D deficiency Solar lentigo Abdominal pain of unknown etiology Left hip pain Memory impairment Insomnia Osteopenia Seasonal affective disorder Genetic susceptibility to disease Skin lesion Gallstone Sore throat Costochondritis (~12/07) Throat swelling History of small bowel obstruction Rosacea Displaced Meckel's diverticulum TMJ syndrome Gastritis Irritable bowel syndrome with constipation Depression with anxiety Chronic post-traumatic stress disorder (PTSD) Chronic fatigue syndrome Myalgia Bilateral knee pain GERD (gastroesophageal reflux disease) Globus sensation Dizziness Steatosis, liver Breast pain, right Physiological tremor Anemia Skin lesions, generalized Oral lesion Internal derangement of left knee Post-traumatic arthritis of right ankle Closed fracture of right proximal humerus Type III open fracture dislocation of right ankle Surgical History Surgical History S/P laparoscopic cholecystectomy H/O tubal ligation Hx of knee surgery Hx of repair of rotator cuff Hx of cholecystectomy History of bilateral tubal ligation History of right knee surgery History of ankle surgery Tobacco Smoking/Tobacco Use Status: Never Alcohol Alcohol Intake: current Alcohol intake frequency: 0-2 drinks per day Substance Use Substance use: Never Substance use type: does not use Vital Signs and Lab Results Vital Signs Most Recent Vital Signs in EMR: Most Recent Vital Signs Temp Pulse Resp BP Pulse Ox 36.3 C L 72 16 122/88 98 09/19/24 08:10 09/19/24 08:10 09/19/24 08:10 09/19/24 08:10 09/19/24 08:10 Lab Results Blood Type / Crossmatch: No Data to Display Complete Blood Count: No Data to Display Complete Metabolic Panel: No Data to Display Liver Function Panel: No Data to Display Coagulation Panel: No Data to Display Cardiac Panel: No Data to Display Arterial Blood Gas: No Data to Display Venous Blood Gas: No Data to Display Pancreas Panel: No Data to Display Thyroid Panel: No Data to Display Infectious Disease: No Data to Display Blood Cultures: No Data to Display Toxicology Panel: No Data to Display Imaging and Studies Imaging and Studies Study information below may be from another EMR and interpreted by another provider. Please see original notes in EMR for more complete details. Stress Test Summary: ETT Report PATIENT NAME: HAILY NGUYEN UNIT #: [id number] ADMITTING PROVIDER: KIARA SENIOR PRIMARY CARE PROVIDER: VINCENT COKER V DATE OF SERVICE: 05/28/13 : 1955 Physician: Reilly / [facility] Tech: [facility] Hgt(inches): 62 Wgt(lbs): 200 History: Chest heaviness for past year, no relation to activity, associated with shortness of breath. Has to stop several times when going up hill. Carotid US on shows carotid artery stenosis w/infarction No known CAD Family Hx: Father - triple CABG Smoking Hx: Quit 25 years ago. Smoked socially Exercise: Gardens, walks Diabetes: Neg Hypertension: Neg BP(supine): 112/80 Cholesterol: 211 Tri HDL: 42 LDL: 138 Date: 03/24/13 Lipid meds: None Troponin: Date: Other: IBS, Depression Meds: Dulculax 2 tabs daily, Ambien 10mg HS prn Protocol: Bill Max MPH: 3.4 % Grade: 14 Target HR 100%: 165 85%: 140 ETT ended at: 8:50 due to fatigue - target met Peak HR: 160 METS: 10.1 Physical examination: Lungs: Clear Cor: No murmurs Resting 12 lead EKG: Sinus Rhythm 61 bpm; NORMAL RESULTS Arrhythmias: None Angina: None HR response: Max 160 bpm; 97% of target BP response: Normal ST-T changes: MIBI SPECT images: Functional Capacity: RESULTS: 1) Chest pain - none. 2) Arrhythmias - none. 3) EKG changes - none. 4) Heart rate/ blood pressure response - normal. 5) Functional capacity - average. CONCLUSION: Negative ischemia. Dictated by: KIARA SENIOR Dictated:: 05/28/13 <Electronically signed by KIARA SENIOR> 06/09/13 0843 Transcribed Date: 05/28/13 Transcribed Time: 0958 By: LESLI This is privileged, confidential information, intended only for the provider named. Any use or distribution by any person other than this provider is strictly prohibited. If you receive this report in error, please notify us immediately at [phone] and return the original report to us at the address above. Thank you. Carotid Artery Summary:: Patient Name: HAILY NGUYEN Unit #: [id number] Loc: DI Ordering Provider: VINCENT COKER V Status: [facility] Primary Care Provider: VINCENT COKER Sarbjit Date of Exam: 04/11/13 Sex: F : 1955 Age: 57 Exam(s): [id number] US:Carotid SYMPTOM/DIAGNOSIS: CAROTID ARTERY STENOSIS WITH INFARCTION 433.11 BILATERAL DUPLEX CAROTID ULTRASOUND: Duplex evaluation of the carotid circulation was performed according to the usual protocol. There is visable atheromatous plaque in the carotid bulbs bilaterally. There is normal flow velocity in left internal/external and common carotid arteries. On the right there is flow velocity elevation in external carotid artery. The proximal internal carotid artery shows flow velocity at 110 cm/second which is at the borderline of normal and mildly elevated. There is bilateral antegrade vertebral flow. CONCLUSION: No evidence of a hemodynamically significant carotid stenosis. CC: Dictated By: LUIS MIGUEL SARMIENTO MD 030 <Electronically signed by LUIS MIGUEL SARMIENTO MD> 04/11/13 1325 Transcribed By: Brenna Ward 04/11/13 1109 Technologist: This is privileged, confidential information intended only for the provider named. Any use or distribution by any person other than this provider is strictly prohibited. If you receive this report in error, please notify us immediately at [phone] and return the original report to us at the address above. Thank-you. Anesthesia Assessment and Plan Anesthesia History Personal History: No History of Anesthesia Complications Family History: No Family History of Anesthesia Complications Exercise Tolerance Exercise Tolerance: Metabolic Equivalents>4 Pertinent Negatives Pertinent Negatives: No Symptoms of GERD Cardiac & Pulmonary Exam Cardiac Exam: Normal S1/S2 Heart Sounds Pulmonary Exam: Clear Bilateral Breath Sounds Implantable Cardiac Device Does patient have a Pacemaker or an ICD?: No Airway Exam Known Difficult Airway: No Mallampati Class: 3 Mouth Opening: Normal (> 3cm) Thyromental Distance: Greater than 3 cm Neck Range of Motion: Full ROM Neck Circumference: Normal Teeth Condition: Normal Dentition and Generalized Poor Dentition (normal wear and tear. Reports missing tooth, not visualized) ASA Classification ASA Score: ASA 2 Emergency Case?: No NPO Status NPO Status: NPO Clears >2 hours, Solids >8 hours Anesthesia Plan Resuscitation Status: Full Code Anesthesia Technique: General Anesthesia Airway Planned: Natural Airway Monitors Used: Standard Monitors
[2024-09-19 09:48] VITALS: BMI 34.9
--- NOTE | 2024-09-19 10:07 | BOWEL_PTH ---
PATIENT: Elle Neal LOC: [facility] U#:[id number] AGE/SX: 68/F ROOM: RE09/19/[address]: Negra Taylor : 1955 BED: DIS: 09/19/2024 SPEC #: [id number] RECD: 09/19/24 12:50 STATUS: RACHID REAnahi #: [id number] TOO: 09/19/24 10:[address]: Negra Taylor DEPT: Surgical Specimen RECD BY: Poornima Garrett ENTERED: 09/19/24 12:51 SP TYPE: Bowel OTHR DR: Riya Shea V Tissues: 1 - BIOPSY BOWEL Procedures: GROSS AND MICRO LEVEL 4 Comments: [id number]
[2024-09-19 10:22] VITALS: BP 110/68; PULSE 73; RESP 16; TEMP 36.1; O2SAT 98
[2024-09-19 10:51] VITALS: BP 128/62; PULSE 66; RESP 16; TEMP 36.1; O2SAT 100
--- NOTE | 2024-09-19 13:43 | W.ANESPOSTOP ---
Postoperative Evaluation Date, Time and Location Date Performed: 09/19/24 Time Performed: 10:30 Patient Location: Day Surgery Unit Vital Signs Most Recent Imported Vital Signs: Most Recent Vital Signs Temp Pulse Resp BP Pulse Ox 36.1 C L 66 16 128/62 100 09/19/24 10:51 09/19/24 10:51 09/19/24 10:51 09/19/24 10:51 09/19/24 10:51 Pain Score Most Recent Pain Score: Most Recent Pain Score Pain Level 0 09/19/24 10:51 Assessment Mental Status: Awake (Alert & Oriented to Patient Baseline) Airway and Respiratory Function: Patent airway with normal (patient baseline) respiratory exam Cardiovascular Function: Hemodynamically Stable Hydration Status: Adequately Hydrated Nausea & Vomiting: No Nausea or Vomiting Pain: Pt. Denies Any Pain Peripheral Nerve Block: Patient did not receive a nerve block
== END 2024-09-19 11:07 | disposition home or self-care (01) ==
LOC: SUR 07:55 → DSU 08:47 → SUR 09:52
PROVIDERS: PCP Family Medicine; Visit Provider Surgery
PROC: 0DJD8ZZ Inspection of Lower Intestinal Tract, Via Natural or Artificial Opening Endoscopic (ICD-10-PCS; CPT 45378; principal; 2024-09-19 09:30)
DX: Z12.11 Encounter for screening for malignant neoplasm of colon (principal); D12.4 Benign neoplasm of descending colon; K64.8 Other hemorrhoids
CPT/HCPCS: 45380; 88305; J2704

== ENCOUNTER → 2024-09-23 14:27 | Outpatient (BNVA) | payer OTHER, SELFPAY | PROVIDERS: PCP Family Medicine; Referring Provider Family Medicine; Visit Provider Nurse Practitioner Adult Health | DX: F03.90 Unspecified dementia, unspecified severity, without behavioral disturbance, psychotic disturbance, mood disturbance, and anxiety (principal) | CPT/HCPCS: 99213 ==

== ENCOUNTER → 2024-11-06 08:59 | Outpatient (BNVA) | payer OTHER, SELFPAY | PROVIDERS: PCP Family Medicine; Referring Provider Family Medicine; Visit Provider Nurse Practitioner Adult Health | DX: F03.90 Unspecified dementia, unspecified severity, without behavioral disturbance, psychotic disturbance, mood disturbance, and anxiety (principal) | CPT/HCPCS: 99214 ==

== ENCOUNTER → 2025-02-05 10:54 | Outpatient (BNVA) | payer MEDICARE, SELFPAY | PROVIDERS: PCP Family Medicine; Referring Provider Family Medicine; Visit Provider Nurse Practitioner Adult Health | DX: F03.90 Unspecified dementia, unspecified severity, without behavioral disturbance, psychotic disturbance, mood disturbance, and anxiety (principal) | CPT/HCPCS: 99214 ==

== ENCOUNTER 2025-07-24 13:06 | Outpatient (REF) | payer MEDICARE, SELFPAY ==
[2025-07-24 15:21] LABS: HCT 41.4 % (36.0-46.0); HGB 13.1 g/dL (11.2-15.7); MCH 28.9 pg (27.0-33.0); MCHC 31.6 % (32.0-36.0); MCV 91 fL (80-95); RBC 4.54 10^6/uL (3.93-5.22); RDW 11.9 % (11.7-14.6); RDW-SD 39.3 fL; WBC 4.86 10^3/uL (4.4-10.8)
[2025-07-24 15:39] LABS: Calculated LDL 157 mg/dL (<100); Cholesterol 218 mg/dL (<200); Ferritin 183 ng/mL (8-252); HDL Cholesterol 47 mg/dL (>or=50); TSH (W/Ref FT4) 1.11 uIU/mL (0.36-3.74); Triglyceride 73 mg/dL (<150)
[2025-07-24 15:45] LABS: Hemoglobin A1C 5.2 % (<5.7)
[2025-07-27 22:06] LABS: Iron 82 ug/dL (50-170)
== END 2025-07-24 13:07 | disposition home or self-care (01) ==
LOC: NCHCN 13:06
PROVIDERS: PCP Family Medicine; Visit Provider Family Medicine
DX: Z13.1 Encounter for screening for diabetes mellitus (principal); Z13.220 Encounter for screening for lipoid disorders; R53.83 Other fatigue; G47.00 Insomnia, unspecified
CPT/HCPCS: 80061; 85027; 82728; 83036; 83540; 84443